=== PATIENT | female | born 1970 | race Caucasian/White ===

== ENCOUNTER 2024-02-13 23:41 | Observation (INO) | payer MEDICARE, OTHER, SELFPAY ==
[2024-02-13 20:06] VITALS: BP 135/70
[2024-02-13 20:13] VITALS: BMI 28.4
[2024-02-13 20:24] LABS: % Eosinophils 1.5 % (0-6); % Immature Granulocytes 0.3 % (0-0.5); % Lymphocytes 31.7 % (20.5-51.1); % Monocytes 11.3 % (1.7-9.3); % Neutrophils 54.2 % (42.2-75.2); Absolute Basophils 0.1 10^3/uL (0-0.2); Absolute Eosinophils 0.1 10^3/uL (0-0.7); Absolute Lymphocytes 2.1 10^3/uL (1.2-3.4); Absolute Monocytes 0.8 10^3/uL (0.1-0.6); Absolute Neutrophils 3.7 10^3/uL (1.4-6.5); Hematocrit 34.8 % (37.0-47.0); Hemoglobin 11.5 g/dL (12.0-16.0); Mean Corpuscular Hgb 31.5 pg (27.0-31.0); Mean Corpuscular Volume 95.3 fL (81.0-99.0); Mean Platelet Volume 9.7 fL (7.4-10.4); Nucleated Red Blood Cells % 0 %; Platelet Count 120 10^3/uL (130-400); Red Blood Cell Count 3.65 10^6/uL (4.20-5.40); Red Cell Dist. Width 15.3 % (11.5-14.5); White Blood Cell Count 6.8 10^3/uL (4.8-10.8)
--- NOTE | 2024-02-13 20:34 | ED.GENMED ---
History of Present Illness
General
Chief Complaint: Back Pain
Source: patient
Exam Limitations: none
Time Seen by Provider: 02/13/24 20:07
History of Present Illness
History of Present Illness:
This is a 53 year old female that is brought in by ambulance with c/o back pain. State that she has been having back spasm for the past 1.5 weeks. States that it wakes her up at night and she can't get to sleep. states that today she sneeze and she
felt it in her back. States that she has abd pain, nausea, dry heaves, and a headache. Denies any injury. Denies any fever, chills, chest pain, SOB, diarrhea, dizziness, urinary burning.
Past History
Past History
ED Past Medical History: Asthma, Cancer (Thyroid), Psychiatric (Anxiety) and Other (Right sided nerve pain from her neck to her finger tips, Anemia, Ascites)
ED Past Surgical History: and Other (Sinus surgery X 3, thyroidectomy, gastric bypass, hernia repair X 3, Breast reduction)
Social History
Tobacco: Non-smoker
Alcohol: Former
Drug: None
Personal: ()
Living: with family
Employment: Employed
Family History
Family History: Other (Noncontributory)
Review of Systems
Review of Systems
All Other Systems: ROS reviewed and negative except as documented in HPI and ROS
Constitutional: Reports no symptoms; Denies fever or chills
EENT: Reports no symptoms
Respiratory: Reports no symptoms; Denies cough or trouble breathing
Cardiac: Reports no symptoms; Denies chest pain
ABD/GI: Reports abdominal pain and nausea; Denies vomiting (Dry heaves) or diarrhea
: Reports no symptoms; Denies dysuria, frequency or urgency
Musculoskeletal: Reports no symptoms
Skin: Reports no symptoms
Neurological: Reports headache; Denies dizzy
Psychiatric: Reports no symptoms
Phy Exam
General Physical Exam
General Presentation: mild distress
General age: appears stated age
General Skin: warm and dry
General Habitus: normal
General Mental: alert
General Hydration: dry mucous membranes
ENT Exam
ENT Exam: TM's normal, pharynx normal and neck supple
Eye Exam
Eye Exam: EOMI
Cardiovascular Exam
Cardiovascular Exam: regular rate/rhythm, no edema and normal peripheral pulses
Pulmonary Exam
Pulmonary Exam: lungs clear, no respiratory distress, no rales, chest non tender, no crackles, no rhonchi, no wheezing and no cough
Gastrointestinal Exam
Gastrointestinal Exam: normal bowel sounds, soft, no organomegaly, no pulsatile mass, non distended and tender (left sided tenderness with palpation)
Musculoskeletal Exam
Musculoskeletal Exam: no edema and other (Pain with rolling to her side, Tenderness with palpation lumbar spine and lateral to the spine.)
Skin Exam
Skin Exam: normal color, warm/dry, no rash and no petechia
Psychiatric Exam
Psychiatric Exam: normal mood/affect
Course
Orders/Labs/Results
Orders:
Orders
02/13/24 20:04
Electrocardiogram (*1) Urgent
Reason for Study: Other
Other Reason for Exam: back pain
EKG- Treatment ONCE
02/13/24 20:11
Complete Blood Count/With Diff Urgent
02/13/24 20:32
CT Lumbar Spine W/ Iv Contrast Urgent
Reason For Exam: Low back pain
Dexamethasone Sod Phosphate [Decadron] 20 mg IV NOW STA
02/13/24 20:34
Diazepam [Valium] 2 mg PO NOW STA
02/13/24 20:35
CT Abd/pelvis W Iv Cont Urgent
Comment:
Reason For Exam: Left sided abd pain
02/13/24 20:36
0.9% Sodium Chloride 1000 ml [Nss] 1,000 ml IV BOLUS
02/13/24 20:51
Comprehensive Metabolic Panel Urgent
Troponin I Urgent
Abnormal Lab Results
02/13/24 02/13/24
20:11 20:51
RBC 3.65 L 10^6/uL
(4.20-5.40)
Hgb 11.5 L g/dL
(12.0-16.0)
Hct 34.8 L %
(37.0-47.0)
MCH 31.5 H pg
(27.0-31.0)
RDW 15.3 H %
(11.5-14.5)
Plt Count 120 L 10^3/uL
(130-400)
Absolute Monos (auto) 0.8 H 10^3/uL
(0.1-0.6)
Monocytes % 11.3 H %
(1.7-9.3)
Total Bilirubin 4.4 H mg/dl
(0.2-1.3)
AST 96 H U/L
(14-36)
ALT 51 H U/L
(0-35)
Alkaline Phosphatase 279 H U/L
(38-126)
Albumin 3.4 L g/dl
(3.5-5.0)
02/13/24 20:11
02/13/24 20:51
H/H slightly low. Thrombocytopenia, Total emigdio elevation. AST/ALT elevation. Alk phos elevation. Troponin <0.012
Vital Signs
Initial and Last Documented VS:
Initial Vital Signs
Pulse Resp Pulse Ox
90 18 100
02/13/24 20:04 02/13/24 20:04 02/13/24 20:04
Last Documented Vital Signs
Temp Pulse Resp BP Pulse Ox
98.8 F 98 24 130/63 100
02/13/24 20:06 02/13/24 22:15 02/13/24 22:15 02/13/24 21:00 02/13/24 22:15
MDM/Problems Addressed
Differential Diagnosis Includes:
Muscle spasm. Buldging disc
MDM/Problems Addressed:
This is a 53 year old female that comes in with c/o low back pain. Daughter states that she was sitting most of the day. Patient states that she has been having muscle spasm for the past 1.5 weeks and today after she sneezed her pain got worse.
Will check labs and give Steroid and pain medication. Will also get CT of the abd and lumbar spine.
back into see patient and family. Explained that she has a L1 compression fracture. Patient is unable to get OOB and screams with turning. Will admit for further evaluation, possible PT and rehab. Hospitalist notified.
Chronic conditions affecting care:
NA
Acute Exacerbation and/or Progression of Chronic Illness:
Na
*Radiology
Radiology exam reviewed: radiology read reviewed (CT lumbar spine and abd/Pelvis-Cirrhosis with stigmata of portal hypertension. TIPS grossly patent. Enlarged spleen. Trace scites in the pelvis. Gastric bypass. Moderate amount of semiliquid stool
throughout the colon, correlate for diarrhea state. Redundant sigmoid colon extending to the upper ), all reviewed NAD by ED Provider (CT cont- upper abdomen, with stetching and slight twisting of the sigmoid mesocolon. No volvulus. Nonobstructing
left renal stone. Acute superior endplate compression fracture of L1 vertebral body with approximately 37% loss of anterior vertebral body height. No posterior retropulsion of i) and other (CT cont- involvement of posterior elements. No spinal
canal narrowing. Additional acute mild superior endplate Schmorl's node deformity of T12 vertebral body. Degenerative changes of the spine. . )
*Pulse Oximetry
Patient hypoxic: no
*EKG
Interpreted by ED Provider?: NA
Rate: EKG- N/A
*Special Events Assistant Interpretation
Rate: normal
Heart Rate: 86
Rhythm: sinus
*Critical Care Note
Total Time (30-74mins, 75-104mins- exclusive of procedures): Not Applicable
ED Attending Note
-
Portions of this chart may have been created with voice recognition software.� Occasional wrong word or��sound alike� substitutions may have occurred due to the inherent limitations of voice recognition software.
Discharge Plan
Departure
Patient Disposition: Admit
Date of Disposition: 02/13/24
Time of Disposition: 22:56
Admit to: Med/Surg
Presentation/result/management discussed w/ accepting MD/DO: Hospitalist
Patient with high blood pressure during this ER visit?: Yes
Condition: Good
Covid-19: Not Applicable
Discharge Problem:
Low back pain, Compression fx, lumbar spine
Prescriptions:
No Action
alprazolam [Xanax] 0.5 mg Tablet
0.5 mg PO HS
ferrous sulfate [Feosol] 325 mg (65 mg iron) tablet
325 mg PO BID Qty: 60 0RF
furosemide 40 mg Tablet
40 mg PO DAILY
naltrexone 50 mg Tablet
50 mg PO DAILY
spironolactone 100 mg Tablet
100 mg PO DAILY
midodrine 5 mg Tablet
5 mg PO DAILY
omeprazole 40 mg Capsule,Delayed Release(Dr/Ec)
40 mg PO DAILY
levothyroxine 25 mcg Tablet
25 mcg PO DAILY
sertraline 25 mg Tablet
25 mg PO DAILY
lactulose 10 gram/15 mL Solution
15 ml PO BID
Referrals:
UNKNOWN,NO INTERVIEW [Family Provider] -
Interventions
Interventions:
*Risk Screen - Suicide Last Done: 02/13/24 20:15
*General Assessment Last Done: 02/13/24 20:09
*Neglect/Abuse Screening Last Done: 02/13/24 20:15
ED- Fall Risk Assessment Last Done: 02/13/24 20:16
*ED COVID-19 Vaccine History Last Done: 02/13/24 20:09
ED-Musculoskeletal Assessment Last Done: 02/13/24 20:05
Discharge Date and Time
Print Language: UKRAINIAN
[2024-02-13] MEDS: VALIUM 2 MG PO (20:39)
[2024-02-13] MEDS: DECADRON 20 MG IV (20:39)
[2024-02-13] MEDS: NSS 1000 IV (20:40)
[2024-02-13 21:00] VITALS: BP 130/63
[2024-02-13 21:11] LABS: ALT (SGPT) 51 U/L (0-35); AST (SGOT) 96 U/L (14-36); Albumin 3.4 g/dl (3.5-5.0); Alkaline Phosphatase 279 U/L (38-126); Blood Urea Nitrogen 7 mg/dl (7-17); Calcium 10.2 mg/dl (8.4-10.2); Carbon Dioxide 23 mmol/L (22-30); Chloride 104 mmol/L (98-107); Estimated Creatinine Clearance 80 ml/min; Glucose 85 mg/dl (70-99); Potassium 3.8 mmol/L (3.5-5.1); Sodium 139 mmol/L (135-145); Total Bilirubin 4.4 mg/dl (0.2-1.3); Total Protein 7.5 g/dl (6.3-8.2); eGFR > 60.00
[2024-02-13 21:23] LABS: Troponin I < 0.012 ng/ml
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
[2024-02-14 00:34] VITALS: BP 121/67; BMI 28.1
[2024-02-14] MEDS: ULTRAM 50 MG PO ×3 (00:55→14:07)
--- NOTE | 2024-02-14 01:32 | PTCARENOTE ---
Received pt from ED into room 2123. Pulled over from stretcher with assist x4. AAOx3. VSS. 8/10 pain in her back when still but 10/10 pain with movement. PRN Tramadol administered, see MAR. Skin intact. Lunch box meal provided, pt ate about 50% of
the sandwich. Pt resting in bed, call bo within reach.
[2024-02-14] MEDS: TYLENOL 650 MG PO (04:58)
[2024-02-14] MEDS: SYNTHROID 25 MCG PO (05:00)
[2024-02-14 06:00] VITALS: BMI 28.1
[2024-02-14 06:30] LABS: % Immature Granulocytes 0.5 % (0-0.5); % Lymphocytes 11.3 % (20.5-51.1); % Monocytes 2.2 % (1.7-9.3); Absolute Lymphocytes 0.5 10^3/uL (1.2-3.4); Absolute Monocytes 0.1 10^3/uL (0.1-0.6); Absolute Neutrophils 3.5 10^3/uL (1.4-6.5); Hematocrit 32.6 % (37.0-47.0); Hemoglobin 11.1 g/dL (12.0-16.0); Mean Corpuscular Hgb 32.4 pg (27.0-31.0); Mean Platelet Volume 9.8 fL (7.4-10.4); Nucleated Red Blood Cells % 0 %; Platelet Count 100 10^3/uL (130-400); Red Blood Cell Count 3.43 10^6/uL (4.20-5.40); Red Cell Dist. Width 15.2 % (11.5-14.5); White Blood Cell Count 4.1 10^3/uL (4.8-10.8)
[2024-02-14 06:53] LABS: ALT (SGPT) 48 U/L (0-35); AST (SGOT) 85 U/L (14-36); Albumin 2.9 g/dl (3.5-5.0); Alkaline Phosphatase 236 U/L (38-126); Blood Urea Nitrogen 8 mg/dl (7-17); Calcium 9.9 mg/dl (8.4-10.2); Carbon Dioxide 23 mmol/L (22-30); Chloride 104 mmol/L (98-107); Estimated Creatinine Clearance 79 ml/min; Glucose 193 mg/dl (70-99); Potassium 4.2 mmol/L (3.5-5.1); Sodium 137 mmol/L (135-145); Total Protein 6.8 g/dl (6.3-8.2); eGFR > 60.00
[2024-02-14 07:15] VITALS: BP 114/58
--- NOTE | 2024-02-14 08:09 | W.PN.HOSP.TC ---
Today's Communication/Plan
-
see PN
Assessment / Plan
Assessment / Plan
53yo F with PMHX of anxiety, hypothyroidismGERD, alcoholic liver disease with cirrhosis (awaiting transplant) came with lower back pain. SHe had it for 2 weeks and on the day of admission noted abrupt worsening of it when she bend over and
concurrently sneezed. As pr ED documentation - compression Fx L1
A/P:
#Compresison Fx L1
No neurological deficit or LE paresthesia noted
pending official CT read
Patient declined opioids, cont NSAIDs, patient informed on possible worsening of PUD and JOLIE with this regimen and verbalized understanding
Muscle relaxant
Back brace
PT/OT
Concern for osteoporosis - outpatient eval by PCP for treatment in 2-3 months (since currently has acute Fx)
#Liver cirrhosis
#Hx of alcohol abuse
#Hypothyroidism
#Thrombocytopenia 2/2 liver cirrhosis
#Chronic anemia
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
#transaminitis 2/2 liver cirrhosis
#Alk.phos elevation 2/2 liver cirrosis
#Chronic hypotension 2/2 liver disease
no abdominal tenderness
cont home meds
cont follow up with established specialists
DVT ppx SCDs
Full code
I have spent at least 58min reviewing chart, test reasults, communicatiomn with consultants and direct patient care
Anticipated Discharge: Within 24 hours
Subjective/Interval History
-
Date of Service: February 14, 2024
Objective Data
-
Labs:
Laboratory Results
02/13/24 02/13/24 02/14/24
20:11 20:51 04:55
WBC 6.8 4.1 L
Hgb 11.5 L 11.1 L
Hct 34.8 L 32.6 L
Plt Count 120 L 100 L
Sodium Cancelled 139 137
Potassium Cancelled 3.8 4.2
Chloride Cancelled 104 104
Carbon Dioxide Cancelled 23 23
BUN Cancelled 7 8
Creatinine Cancelled 0.8 0.8
Glucose Cancelled 85 193 H
Calcium Cancelled 10.2 9.9
Total Bilirubin Cancelled 4.4 H 4.0 H
AST Cancelled 96 H 85 H
ALT Cancelled 51 H 48 H
Alkaline Phosphatase Cancelled 279 H 236 H
Vital Signs:
Vital Signs
Temp Pulse Resp BP Pulse Ox
98.7 F 93 19 121/67 98
02/14/24 00:34 02/14/24 00:34 02/14/24 00:34 02/14/24 00:34 02/14/24 03:43
I&O
02/13/24 02/14/24 02/15/24
06:59 06:59 06:59
Intake Total 360 / 360
Balance 360 / 360
Review of Systems
-
History Source: Patient
All other systems: Reviewed and negative
Musculoskeletal: Reports Other (lower Back pain)
Physical Exam
-
General: No Apparent Distress
HEENT: Normocephalic
Respiratory: Clear to Auscultation
Cardiac: Regular Rhythm
GI: Soft, Nontender and Nondistended
Genito-urinary: No Costovertebral Tender
Musculoskeletal: No Clubbing, No Cyanosis and No Edema
Neuro: Awake, Alert, Oriented and AO x 3
Psych: Calm
[2024-02-14] MEDS: LASIX 40 MG PO (08:31)
[2024-02-14] MEDS: LIDOCAINE 4% PATCH 1 PATCH TOPICAL (08:31)
[2024-02-14] MEDS: DUPHALAC/CHRONULAC 15 GRAMS PO (08:31)
[2024-02-14] MEDS: ZOLOFT 25 MG PO (08:31)
[2024-02-14] MEDS: FEOSOL 325 MG PO (08:32)
[2024-02-14] MEDS: REVIA 50 MG PO (08:32)
[2024-02-14] MEDS: ProAmatine 5 MG PO (08:32)
[2024-02-14] MEDS: ALDACTONE 100 MG PO (08:32)
[2024-02-14] MEDS: PROTONIX 40 MG PO (08:32)
[2024-02-14 10:50] VITALS: BP 113/61; BP 117/62; BP 119/61; PULSE 87; PULSE 90
[2024-02-14 13:04] VITALS: BP 125/62; PULSE 89; O2SAT 98
[2024-02-14 13:15] VITALS: BP 125/62; PULSE 89; O2SAT 98
--- NOTE | 2024-02-14 13:27 | W.DCSUMMARY ---
Discharge Summary
Discharge Data
Date of Admission: 02/13/24
Date of Discharge: 02/14/24
-
Pending Results: No
Hospital Course
53yo F with PMHX of anxiety, hypothyroidism, GERD, alcoholic liver disease with cirrhosis (awaiting transplant), TIPS came with lower back pain. SHe had it for 2 weeks and on the day of admission noted abrupt worsening of it when she bend over and
concurrently sneezed. As pr ED documentation - compression Fx L1. Further review with radiologist - mild fractures with trace retropustion. No sinal cord compression and no neurological deficit. PT/OT recommended home with walker. Patient should
monitor herself and if no improvement in 1-2 weeks while wearing lumbar support - will have to seek help with spinal orthopedist. Patient declined opioids, so was prescribed lowest dose possible of Diclofenac x5days BID PRN and Robaxin. She was
explained that it can cause worsening of PUD including bleeding, as well as kidney failure. Pt was recommended to avoid it as much a she can and use PPI daily for the next month. ALso sufficienct fluid intake recommended. She is agreeable with plan
and verbalized understanding of the instructions.
Medically stable for d/c
I have spent at least 38min discharging the patient
A/P:
#mild compression deformities involving T12 and L1.
#Trace asociated retropulsion
#L3-L4 Small disc bulge with mild ligamentum flavum thickening with resultant effacement of the anterior thecal sac without significant spinal canal stenosis
#L5-S1 Asymmetric to left disc bulge
#Non-obstructing nephrolithiasis
#Liver cirrhosis
#Hx of alcohol abuse
#Hypothyroidism
#Thrombocytopenia 2/2 liver cirrhosis
#Chronic anemia
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
#transaminitis 2/2 liver cirrhosis
#Alk.phos elevation 2/2 liver cirrosis
#Chronic hypotension 2/2 liver disease
#s/p TIPS
Discharge Plan
-
Patient Disposition: Home (Routine Discharge)
Discharge Diagnosis/Procedures: L1 compression Fx
Diet: Regular
Driving Restrictions: As prior to admission
Activity Restrictions/Additional Instructions:
Wear back support when ambulating
No bending, jumping, running
If pain does not improve in 1-2 weeks - schedule appointment with spinal orthopedics
Referrals:
UNKNOWN,NO INTERVIEW [Family Provider] -
Prescriptions:
New
methocarbamol 750 mg tablet
750 mg PO Q8HPRN PRN (Reason: muscle spasm) Qty: 15 0RF
diclofenac sodium 25 mg tablet,delayed release (DR/EC)
25 mg PO BIDPRN PRN (Reason: Pain) Qty: 10 0RF
pantoprazole 40 mg tablet,delayed release (DR/EC)
40 mg PO DAILY Qty: 30 0RF
calcium carbonate-vitamin D3 [Calcium 600 with Vitamin D3] 600 mg-12.5 mcg (500 unit) capsule
2 cap PO DAILY Qty: 60 0RF
Continued
alprazolam [Xanax] 0.5 mg Tablet
0.5 mg PO HS
ferrous sulfate [Feosol] 325 mg (65 mg iron) tablet
325 mg PO BID Qty: 60 0RF
furosemide 40 mg Tablet
40 mg PO DAILY
naltrexone 50 mg Tablet
50 mg PO DAILY
spironolactone 100 mg Tablet
100 mg PO DAILY
midodrine 5 mg Tablet
5 mg PO DAILY
omeprazole 40 mg Capsule,Delayed Release(Dr/Ec)
40 mg PO DAILY
levothyroxine 25 mcg Tablet
25 mcg PO DAILY
sertraline 25 mg Tablet
25 mg PO DAILY
lactulose 10 gram/15 mL Solution
15 ml PO BID
Discharge Orders:
Discharge Patient (As Directed); Ordered 02/14/24
Ordered By: Edgar Acuna
Discharge Date and Time
Print Language: AMHARIC
[2024-02-14 13:35] LABS: Hepatitis C Antibody Negative (Negative)
[2024-02-14 13:52] LABS: Folate 7.6 ng/ml (2.76-20)
[2024-02-14 14:15] VITALS: BP 118/62
--- NOTE | 2024-02-14 14:32 | CM ---
Addendum entered by Danita Dimas 02/14/24 14:47:
Accepted by [facility]
Original Note:
Met with pt and her daughter at bedside
Pt reports she lives alone in a [facility] apt; 14 steps to enter, FF set-up
Reports independent at baseline, drives
DME - none
SNF/HH - no past hx
Has ride home at d/c
PCP - [facility]
Pharm - Jay
PT/OT recs - HH - discussed with pt no preference
Referral sent in [facility] Port to [facility]
Discussed ALEXANDER
Plan - home with [facility]
f - [phone]
[2024-02-14 14:51] LABS: Vitamin B12 > 1000 pg/ml (239-931)
== END 2024-02-14 15:10 | disposition home health service (06) ==
LOC: 2 NORTH 23:41
PROVIDERS: ADMITTING PHYSICIAN Hospitalist; ATTENDING PHYSICIAN Internal Medicine; EMERGENCY PHYSICIAN Emergency Medicine
DX: M51.370 Other intervertebral disc degeneration, lumbosacral region with discogenic back pain only (principal); M62.830 Muscle spasm of back; R51.9 Headache, unspecified; R11.2 Nausea with vomiting, unspecified; R10.9 Unspecified abdominal pain; E89.0 Postprocedural hypothyroidism; F41.9 Anxiety disorder, unspecified; J45.909 Unspecified asthma, uncomplicated; K76.6 Portal hypertension; R16.1 Splenomegaly, not elsewhere classified; F10.11 Alcohol abuse, in remission; D50.9 Iron deficiency anemia, unspecified; R29.890 Loss of height; F32.A Depression, unspecified; K70.31 Alcoholic cirrhosis of liver with ascites; I10 Essential (primary) hypertension; K76.0 Fatty (change of) liver, not elsewhere classified; I95.1 Orthostatic hypotension; V89.2XXS Person injured in unspecified motor-vehicle accident, traffic, sequela; D69.59 Other secondary thrombocytopenia; K21.9 Gastro-esophageal reflux disease without esophagitis; N20.0 Calculus of kidney; M48.56XA Collapsed vertebra, not elsewhere classified, lumbar region, initial encounter for fracture; Z76.82 Awaiting organ transplant status; Z98.84 Bariatric surgery status; Z85.850 Personal history of malignant neoplasm of thyroid; Z60.2 Problems related to living alone
CPT/HCPCS: 72132; 74177; 80053; 82607; 82746; 84484; 85025; 86803; 93005; 96361; 96374; 97116; 97162; 97166; 97530; 97535; 99285; G0378; Q9967

== ENCOUNTER → 2024-10-22 11:09 | Outpatient (REF) | payer OTHER, SELFPAY | LOC: RAD 11:09 | PROVIDERS: ATTENDING PHYSICIAN Student in an Organized Health Care Education/Training Program | DX: Z95.828 Presence of other vascular implants and grafts (principal); K70.31 Alcoholic cirrhosis of liver with ascites | CPT/HCPCS: 76700 ==

== ENCOUNTER 2024-11-14 01:00 | Emergency (ER) | payer OTHER, SELFPAY ==
[2024-11-14 01:04] VITALS: BP 158/79
[2024-11-14 01:36] VITALS: BMI 27.0
[2024-11-14] MEDS: DILAUDID 0.5 MG IV (01:58)
[2024-11-14] MEDS: ZOFRAN 4 MG IV (01:58)
[2024-11-14 02:14] LABS: Hematocrit 35.8 % (37.0-47.0); Hemoglobin 12.6 g/dL (12.0-16.0); Mean Corp Hgb Conc. 35.2 g/dL (33.0-37.0); Mean Corpuscular Volume 94.5 fL (81.0-99.0); Nucleated Red Blood Cells % 0 %; Platelet Count 119 10^3/uL (130-400); Red Cell Dist. Width 14.3 % (11.5-14.5)
--- NOTE | 2024-11-14 02:19 | ED.GENMED ---
History of Present Illness
General
Chief Complaint: Back Pain
Source: patient and previous hospital records (Overnight hospitalization January 2024 for similar complaint of acute back pain. Found to have mild compression fractures of T12 and L1 vertebral bodies.)
Exam Limitations: none
Time Seen by Provider: 11/14/24 01:33
Nursing documentation reviewed up to this point in time: agreed with
History of Present Illness
History of Present Illness:
The patient is a 54-year-old female with a history of thoracic and lumbar vertebral fractures, specifically compression fractures of the T12 and adjacent areas, who presented with acute mid to low back pain. She reports that she was at her daughters
house cooking all day, using her legs and back extensively for lifting. She did not experience any specific incident of lifting that caused immediate pain, nor did she fall. This episode is characterized by pain in the lower back without radiation
to the legs. She denies any abdominal pain and reports that the pain remains localized even with movement. The patient also reports chronic dry heaving without food coming up, which she relates to chronic liver issues, history of alcoholic cirrhosis
and prior history of gastric bypass. She denies hematemesis. Nausea and dry heaves is an ongoing chronic issue, stable and unchanged. No change in weight. She manages daily activities with some difficulty due to her condition.
She was hospitalized here overnight January 2024 with acute low back pain that began 2 weeks prior after bending over. Found to have mild compression deformities of T12 and L1 vertebral bodies. Discharged to home with a small prescription for
low-dose diclofenac as well as methocarbamol and Protonix. Patient elected to avoid opioids due to her prior history of alcohol abuse.
After that admission she had been following with various specialist including orthopedics, rheumatology, physical therapy. She did not require surgical interventions nor injections. She states since that time she has been found to have 9 vertebral
compression fractures throughout her thoracic and lumbar spine. She follows with liver specialist at [facility]. She had been on liver transplant list but admits that she had briefly resumed Alcohol and thus currently not on
transplant list. She has since resumed sobriety and has remained sober.
Mid to low back pain currently severe, worsening throughout the evening, much worse with attempted movement. No weakness or numbness. No difficulty moving her bowels or bladder. No chest pain or cough no shortness of breath.
Past History
Past History
ED Past Medical History: Asthma, Cancer (Thyroid), Hypothyroidism, Psychiatric (Anxiety) and Other (Right sided nerve pain from her neck to her finger tips, Anemia, Ascites, alcoholic cirrhosis, thoracic as well as vertebral compression fractures,
kidney stones)
ED Past Surgical History: and Other (Sinus surgery X 3, thyroidectomy, gastric bypass, hernia repair X 3, Breast reduction)
Social History
Tobacco: Non-smoker
Alcohol: Former
Drug: None
Personal: ()
Living: with family
Employment: Disabled
Family History
Family History: Other (Noncontributory)
Phy Exam
Physical Exam
Physical Exam:
GENERAL: 54-year-old woman appears somewhat older than stated age, awake and alert, lying Semi-Marquez's on stretcher, appears in mild to moderate distress, intermittently tearful, resistant to move. A female friend is accompanying.
EYE: pupils equal and reactive. Minimally icteric.
NECK: Supple, nontender, no meningismus, no significant adenopathy.
ENT: oral mucosa is moist. No rhinorrhea.
CARDIAC: Regular rate and rhythm. no murmur.
LUNGS: Clear breath sounds bilaterally, no acute respiratory distress, no wheezes/rales/rhonchi
ABDOMEN: Soft, nondistended, without focal tenderness, no r/g, no cvat. normoactive BS.
BACK: Moderate midline tenderness mid to distal thoracic as well as entire lumbar spine. There is no step-off deformity. No crepitus. Moderately restricted thoracolumbar range of motion related to pain. No palpable bony pelvic tenderness.
NEUROLOGICAL: Alert and oriented x3, no focal neuro deficits. Motor strength 5/5 bilaterally. Gross sensation is intact.
SKIN: Warm and dry, minimally icteric in color, few spider angiopathy's of face, skin intact. No rash.
MUSCULOSKELETAL: No C/C/E. peripheral pulses are full and equal b/l. No palpable tenderness.
PSYCH: Normal and appropriate interaction.
Course
Orders/Labs/Results
Orders:
Orders
11/14/24 01:46
Lumbar Spine Complete, 4 View [CR Lumbar Spine Comp Min 4 Vw*] Urgent
Comment:
Reason For Exam: acute on chronic LBP
Thoracic Spine 3 Views CR [CR Thoracic Spine 3 Views] Urgent
Comment:
Reason For Exam: acute on chronic mid to lower T spine pain
11/14/24 01:47
HYDROmorphone [Dilaudid] 0.5 mg IV NOW STA
Ondansetron Injectable [Zofran] 4 mg IV NOW STA
11/14/24 01:58
Complete Blood Count/With Diff Urgent
Comprehensive Metabolic Panel Urgent
Prothrombin Time Urgent
Sed Rate [Erythrocyte Sed Rate] Urgent
11/14/24 03:19
Oxycodone [Roxicodone] 5 mg PO NOW STA
Abnormal Lab Results
11/14/24
01:58
RBC 3.79 L 10^6/uL
(4.20-5.40)
Hct 35.8 L %
(37.0-47.0)
MCH 33.2 H pg
(27.0-31.0)
Plt Count 119 L 10^3/uL
(130-400)
Absolute Monos (auto) 0.8 H 10^3/uL
(0.1-0.6)
Monocytes % 12.7 H %
(1.7-9.3)
PT 18.0 H Sec
(11.4-14.6)
BUN 23 H mg/dl
(7-17)
Calcium 11.0 H mg/dl
(8.4-10.2)
Total Bilirubin 3.1 H mg/dl
(0.2-1.3)
AST 87 H U/L
(14-36)
ALT 50 H U/L
(0-35)
Alkaline Phosphatase 406 H U/L
(38-126)
11/14/24 01:58
11/14/24 01:58
Vital Signs
Initial and Last Documented VS:
Initial Vital Signs
Temp Pulse Resp BP Pulse Ox
98.3 F 90 20 158/79 100
11/14/24 01:04 11/14/24 01:04 11/14/24 01:04 11/14/24 01:04 11/14/24 01:04
Last Documented Vital Signs
Temp Pulse Resp BP Pulse Ox
98.3 F 90 20 137/75 100
11/14/24 01:04 11/14/24 01:04 11/14/24 01:04 11/14/24 02:55 11/14/24 02:33
MDM/Problems Addressed
Differential Diagnosis Includes:
The Differential Diagnosis includes, in no particular order and is not limited to:
- Vertebral compression fracture
- Osteoporosis-related back pain
- Muscular strain
- Degenerative disc disease
- Spinal stenosis
- Radiculopathy
- Paraspinal muscle spasm
- Sacroiliac joint dysfunction
- Metastatic bone disease
- Thoracolumbar soft tissue injury
MDM/Problems Addressed:
Acute: Low back pain, dry heaving
Chronic: Vertebral compression fractures, cirrhosis.
Will plan to establish IV and give a small IV dose of Dilaudid.
Due to history of cirrhosis, previous TIPS procedure, concern for potential coagulopathy and thus will hold off on NSAIDs for now.
Will check x-rays of thoracic and lumbar spine.
Will check labs as patient has history of anemia, thrombocytopenia, hyperbilirubinemia all related to liver disease.
Chronic conditions affecting care: Other (- Cirrhosis: The patient follows up with a liver specialist at [facility]. She was previously on a transplant list but was removed due to resuming alcohol consumption. She reports that she is not
currently drinking and has no desire to do so.)
*Radiology
Radiology exam reviewed: preliminary read by ED provider (Multiple mid to lower thoracic compression fractures as well as compression fracture of T5, compression fractures of L1, L2, L3, new/progressed compared to previous films January 2024.)
*Pulse Oximetry
SaO2: 100
Oxygen Mode of Delivery: Room air
Patient hypoxic: no
*Critical Care Note
Total Time (30-74mins, 75-104mins- exclusive of procedures): Not Applicable
Comment
Comment:
The patient has a history of alcohol use but currently denies any use, stating she 'never desired to drink' after being removed from the transplant list for drinking.
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
Appears to have good social support in place.
Update Note
Update Note:
03:25
Thoracic and lumbar imaging showed multiple compression deformities. Multiple compression fractures are new compared to previous imaging in January but according to patient since hospitalization January 2024 she has suffered multiple, at least 9
compression deformities of her thoracic and lumbar spine. At this point unclear if she has additional compression deformities, progression of compression deformities.
Patient feeling improved after 1 small IV dose of Dilaudid. Continues to have no abdominal pain, no radicular signs or symptoms, no weakness or numbness.
She follows with orthopedics and apparently there was discussion regarding spinal bracing procedure but noted that was too invasive. She does not believe vertebroplasty was ever discussed.
She states she underwent DEXA scan that showed no evidence of osteoporosis.
She does have thoracolumbar back brace at home which she plans to resume and also has a walker and a cane.
Will give a dose of oxycodone now and plan is to ensure patient can get up and be mobile.
Her goal is to be discharged to home but if unable to ambulate will require acute hospitalization for pain control, PT evaluation.
04:15
Patient has successfully ambulated about exam room.
Will discharge to home with prescription for oxycodone for as needed pain.
Recommend resumption of her thoracolumbar back brace.
Prompt follow-up with orthopedics next week for recheck.
ED Attending Note
-
Portions of this chart may have been created with voice recognition software.� Occasional wrong word or��sound alike� substitutions may have occurred due to the inherent limitations of voice recognition software.
Discharge Plan
Departure
Patient Disposition: Home (Routine Discharge)
Date of Disposition: 11/14/24
Time of Disposition: 04:18
Patient with high blood pressure during this ER visit?: No
Condition: Good
Discharge Problem:
Acute exacerbation of thoracolumbar back, Multiple thoracolumbar compression fract
Instructions: Vertebral Compression Fracture ED
Prescriptions:
New
oxycodone 5 mg tablet
5 mg PO Q8H PRN (Reason: Pain) Qty: 14 0RF
No Action
alprazolam [Xanax] 0.5 mg Tablet
0.5 mg PO HS
ferrous sulfate [Feosol] 325 mg (65 mg iron) tablet
325 mg PO BID Qty: 60 0RF
furosemide 40 mg Tablet
40 mg PO DAILY
spironolactone 100 mg Tablet
100 mg PO DAILY
midodrine 5 mg Tablet
5 mg PO DAILY
omeprazole 40 mg Capsule,Delayed Release(Dr/Ec)
40 mg PO DAILY
levothyroxine 25 mcg Tablet
25 mcg PO DAILY
sertraline 25 mg Tablet
25 mg PO DAILY
lactulose 10 gram/15 mL Solution
15 ml PO BID
methocarbamol 750 mg tablet
750 mg PO Q8HPRN PRN (Reason: muscle spasm) Qty: 15 0RF
diclofenac sodium 25 mg tablet,delayed release (DR/EC)
25 mg PO BIDPRN PRN (Reason: Pain) Qty: 10 0RF
pantoprazole 40 mg tablet,delayed release (DR/EC)
40 mg PO DAILY Qty: 30 0RF
calcium carbonate-vitamin D3 [Calcium 600 with Vitamin D3] 600 mg-12.5 mcg (500 unit) capsule
2 cap PO DAILY Qty: 60 0RF
Referrals:
Jorge Robert MD [Family Provider] - Call in 1-3 days for appt
Stand Alone Forms: Return to Work
Activity Restrictions/Additional Instructions:
While taking oxycodone, start a daily fiber supplement as well as stool softener such as Colace to avoid potential constipation.
Resume using her back brace as well as walker or cane as needed for assistance with ambulating.
Prompt call to your orthopedist next week for follow-up and recheck.
Interventions
Interventions:
*Risk Screen - Suicide Last Done: 11/14/24 01:04
*General Assessment Last Done: 11/14/24 01:04
*Neglect/Abuse Screening Last Done: 11/14/24 01:04
ED-Musculoskeletal Assessment Last Done: 11/14/24 01:36
Discharge Date and Time
Print Language: PAKISTANI
[2024-11-14 02:23] LABS: INR 1.46; PT 18.0 Sec (11.4-14.6)
[2024-11-14 02:35] LABS: ALT (SGPT) 50 U/L (0-35); AST (SGOT) 87 U/L (14-36); Albumin 4.0 g/dl (3.5-5.0); Alkaline Phosphatase 406 U/L (38-126); Blood Urea Nitrogen 23 mg/dl (7-17); Calcium 11.0 mg/dl (8.4-10.2); Carbon Dioxide 29 mmol/L (22-30); Chloride 106 mmol/L (98-107); Estimated Creatinine Clearance 71 ml/min; Glucose 96 mg/dl (70-99); Potassium 3.7 mmol/L (3.5-5.1); Sodium 140 mmol/L (135-145); Total Protein 7.4 g/dl (6.3-8.2); eGFR > 60.00
[2024-11-14 02:55] VITALS: BP 137/75
[2024-11-14] MEDS: ROXICODONE 5 MG PO (03:25)
== END 2024-11-14 04:42 | disposition home or self-care (01) ==
LOC: EMR 01:00
PROVIDERS: EMERGENCY PHYSICIAN Emergency Medicine; FAMILY PHYSICIAN Family Medicine
DX: M48.54XA Collapsed vertebra, not elsewhere classified, thoracic region, initial encounter for fracture (principal); M54.9 Dorsalgia, unspecified; M48.55XA Collapsed vertebra, not elsewhere classified, thoracolumbar region, initial encounter for fracture; M48.56XA Collapsed vertebra, not elsewhere classified, lumbar region, initial encounter for fracture; J45.909 Unspecified asthma, uncomplicated; E03.9 Hypothyroidism, unspecified; F41.9 Anxiety disorder, unspecified; K70.30 Alcoholic cirrhosis of liver without ascites; Z76.82 Awaiting organ transplant status; Z85.850 Personal history of malignant neoplasm of thyroid; Z87.442 Personal history of urinary calculi; Z98.84 Bariatric surgery status; Z98.891 History of uterine scar from previous surgery
CPT/HCPCS: 99283; 96374; 96375; 72072; 72110; 80053; 85025; 85610; 85652